=== PATIENT | male | born 1960 | race Two or more races ===

== ENCOUNTER 2024-03-02 23:35 | Emergency (ER) | payer MEDICAID ==
[~2024-03-02] VITALS: Ht 165.1 cm; Wt 70.0 kg
[2024-03-03 00:02] VITALS: TEMP 98.3
[2024-03-03 00:19] LABS: APPEARANCE,URINE CLEAR (CLEAR); BILIRUBIN,URINE NEGATIVE (NEGATIVE); COLOR,URINE LIGHT YELLOW (YELLOW); GLUCOSE, URINE (UA) NEGATIVE (NEGATIVE); KETONES,URINE NEGATIVE (NEGATIVE); LEUKOCYTE ESTERASE ,URINE NEGATIVE (NEGATIVE); NITRATE,URINE NEGATIVE (NEGATIVE); OCCULT BLOOD,URINE MODERATE (NEGATIVE); PROTEIN,URINE NEGATIVE (NEGATIVE); SPECIFIC GRAVITIY, URINE 1.009 (1.003-1.030); UROBILINOGEN,URINE <=1.0 mg/dL (<=1.0)
[2024-03-03 00:26] LABS: WBC,URINE None Seen /HPF (0-5)
[2024-03-03 00:27] LABS: BACTERIA,URINE None Seen /HPF (None Seen); SQUAMOUS EPITHELIAL CELL,UR Few /LPF (None Seen)
[2024-03-03] MEDS ORDERED: TAMS0.4C94 PO (00:50)
[2024-03-03 02:00] VITALS: BP 124/74; PULSE 74; RESP 18
== END 2024-03-03 02:30 | disposition home or self-care (01) ==
LOC: EMS 23:38
DX: R33.9 Retention of urine, unspecified (principal); N40.0 Benign prostatic hyperplasia without lower urinary tract symptoms
CPT/HCPCS: 81001; 99283